=== PATIENT | female | born 1955 | race African-American/Black ===

== ENCOUNTER 2019-10-15 11:13 | Emergency (ER) | payer MEDICARE, MEDICAID ==
--- NOTE | 2019-10-15 13:08 | RAD ---
FRONTAL CHEST WITH LEFT RIBS TWO VIEWS: 10/15/2019 PROVIDED CLINICAL HISTORY: Chest pain status post injury. COMPARISON: 01/17/2016 FINDINGS: The cardiac and mediastinal silhouette is within normal limits. No focal consolidation, pleural fluid or pneumothorax apparent. No evidence for a displaced left sided rib fracture. IMPRESSION: As above. POS: [facility]
== END 2019-10-15 13:15 | disposition home or self-care (01) ==
LOC: ERS 11:13
DX: R07.89 Other chest pain (principal); M19.90 Unspecified osteoarthritis, unspecified site; I10 Essential (primary) hypertension; J45.909 Unspecified asthma, uncomplicated; F32.9 Major depressive disorder, single episode, unspecified; Z79.899 Other long term (current) drug therapy; W19.XXXA Unspecified fall, initial encounter